=== PATIENT | female | born 1965 | race African-American/Black ===

== ENCOUNTER 2019-12-14 15:18 | Emergency (ER) | payer OTHER ==
[2019-12-14 16:08] LABS: #Eosinphils 0.2 thou/uL (0.0-0.7); #Lymphocytes 1.5 thou/uL (1.20-3.40); #Monocytes 0.5 thou/uL (0.11-0.59); %Basophils 0.5 % (0.0-1.0); %Eosinophils 3.2 % (0.0-10.0); %Lymphocytes 29.7 % (21.0-51.0); %Monocytes 8.8 % (0.0-10.0); %Neutrophils 57.8 % (42.0-75.0); Hemoglobin 15.6 g/dL (12.0-16.0); Mean Corpuscular HGB CONC 34.9 g/dL (32.0-36.0); Mean Corpuscular Hemoglobin 32.3 pg (27.0-31.0); Mean Corpuscular Volume 92.8 fL (78.0-98.0); Mean Platelet Volume 7.7 fL (7.4-10.4); Platelet Count 222 thou/uL (130-400); RBC Distribution Width 12.1 % (11.5-14.5); Red Blood Cell (RBC) Count 4.82 mill/uL (4.20-5.40); White Blood Cell (WBC) Count 5.2 thou/uL (4.8-10.8)
[2019-12-14 16:31] LABS: ALT (SGPT) 19 U/L (8-55); AST (SGOT) 16 U/L (5-34); Albumin 4.6 g/dL (3.5-5.0); Alkaline Phosphatase 63 U/L (40-110); Anion Gap 11 mmol/L (10-20); BUN (Urea Nitrogen) 17 mg/dL (9.8-20.1); Bilirubin, Total 0.5 mg/dL (0.2-1.2); Calc. Creatinine Clearance 0 mL/min (70-130); Calcium 10.3 mg/dL (7.8-10.44); Carbon Dioxide 30 mmol/L (22-29); Chloride 104 mmol/L (98-107); Estimated GFR-MDRD 64; Globulin 3.5 g/dL (2.4-3.5); Glucose 121 mg/dL (70-105); Potassium 3.8 mmol/L (3.5-5.1); Protein, Total 8.1 g/dL (6.0-8.3); Sodium 141 mmol/L (136-145)
--- NOTE | 2019-12-14 16:53 | RAD ---
PORTABLE CHEST: 12/14/19 PROVIDED CLINICAL HISTORY: Chest pain. FINDINGS: Comparison 05/30/02. The cardiac and mediastinal silhouette is within normal limits. No focal consolidation, pleural fluid or pneumothorax apparent. IMPRESSION: No evidence for an acute cardiopulmonary process. POS: AH
--- NOTE | 2019-12-16 17:38 | EKG ---
Test Reason : Blood Pressure : / mmHG Vent. Rate : 082 BPM Atrial Rate : 082 BPM P-R Int : 140 ms QRS Dur : 078 ms QT Int : 348 ms P-R-T Axes : 000 -21 090 degrees QTc Int : 406 ms Normal sinus rhythm Normal ECG Confirmed by SLIME GUZMAN, DEONDRE Fay ([id number]), website/blog editor NÉSTOR PERSON ([id number]) on 12/16/2019 5:38:00 PM Referred By: Confirmed By:DEONDRE PALENCIA MD
== END 2019-12-14 17:30 | disposition home or self-care (01) ==
LOC: ERS 15:18
DX: R07.9 Chest pain, unspecified (principal); E03.9 Hypothyroidism, unspecified; I10 Essential (primary) hypertension; Z79.899 Other long term (current) drug therapy
CPT/HCPCS: 71045; 80053; 84484; 85025; 93005